=== PATIENT | female | born 1950 | race Caucasian/White ===

== ENCOUNTER → 2021-04-29 | Outpatient (CLI) | payer OTHER | LOC: KOH-I 13:40 | DX: M25.551 Pain in right hip (principal); R10.2 Pelvic and perineal pain; M25.552 Pain in left hip; M16.0 Bilateral primary osteoarthritis of hip | CPT/HCPCS: 73522 ==

== ENCOUNTER → 2021-07-01 | Outpatient (CLI) | payer OTHER | LOC: CT 07:54 | DX: K43.9 Ventral hernia without obstruction or gangrene (principal) | CPT/HCPCS: 36415; 74150; 82565; 84520; Q9965 ==